=== PATIENT | male | born 1990 | race Caucasian/White ===

== ENCOUNTER 2018-03-05 14:30 | Emergency (ER) | payer SELFPAY ==
--- NOTE | 2018-03-05 14:38 | EDPHY ---
H & P Stated Complaint: SI/QUIT HIS JOB AND LOST GIRLFRIEND RECENTLY Source: Patient, Family (Father) Exam Limitations: No limitations - Personal History Current Tetanus/Diphtheria Vaccine: Yes - Medical/Surgical History Hx Asthma: No Hx Chronic Respiratory Disease: No Hx Diabetes: No Hx Cardiac Disease: No Hx Renal Disease: No Hx Cirrhosis: No Hx Alcoholism: No Hx HIV/AIDS: No Hx Splenectomy or Spleen Trauma: No Other PMH: DENIES - Social History Smoking Status: Current some day smoker Time Seen by Provider: 03/05/18 14:37 HPI/ROS: HPI: This is a 19-year-old male who presents with Chief Complaint: Suicidal ideation Location: psych Quality: Suicidal ideation Duration: 1-2 weeks Signs and Symptoms: No hallucinations, + insomnia, + inability of a motion, + suicidal ideation with a plan, no homicidal ideation, no paranoia Timing: Daily, worsening Severity: Severe Context: Patient presents with complaints of severe major depression over the last 5 months. His father is concerned over the last several weeks as patient has become more and more depressed withdrawing from family and friends. Smokes marijuana frequently. Quit his job and recently lost his girlfriend. No prior history of depression or inpatient psychiatric treatment. Patient has been playing with guns and knives and even told his roommates and family that he should just kill himself with his gun. He does not want to live any longer. Modifying Factors: None Comment: ROS: see HPI Constitutional: No fever, no chills, no weight loss Eyes: No blurred vision Respiratory: No shortness of breath, no cough Cardiovascular: No chest pain Gastrointestinal: No nausea, no vomiting, no diarrhea Genitourinary: No dysuria Extremities: No myalgias Neurologic: No weakness, no numbness Skin: No rashes Hematologic: No bruising, no bleeding MEDICAL/SURGICAL/SOCIAL HISTORY: Medical history: Generally healthy. Does not take any regular medications. Surgical history: Denies Social history: Student. Lives with roommates. Family history noncontributory. CONSTITUTIONAL: Tense, withdrawn, mumbling, tidy, young adult male, awake and alert, no obvious distress HEENT: Atraumatic and normocephalic, PERRL, EOMI. Nares patent; no rhinorrhea; no nasal mucosal edema. Tympanic membranes clear. Oropharynx clear, no exudate and moist pink mucosa. Airway patent. No lymphadenopathy. No meningismus. Cardiovascular: Normal S1/S2, tachycardia, regular rhythm, without murmur rub or gallop. PULMONARY/CHEST: Symmetrical and nontender. Clear to auscultation bilaterally. Good air movement. No accessory muscle usage. ABDOMEN: Soft, nondistended, nontender, no rebound, no guarding, no peritoneal signs, no masses or organomegaly. No CVAT. EXTREMITIES: 2/2 pulses, strength 5/5, no deformities, no clubbing, no cyanosis or edema. NEUROLOGICAL: no focal neuro deficits. GCS 15. SKIN: Warm and dry, no erythema. no rash. Good capillary refill. PSYCH: Poor eye contact, no flight of ideas, organized thought process, poor insight and judgment, no auditory and visual command hallucinations, + suicidal ideation with a plan, no homicidal ideation, not paranoid (Stephy Mack) Constitutional: Initial Vital Signs Temperature (C) 37.1 C 03/05/18 14:33 Heart Rate 103 H 03/05/18 14:33 Respiratory Rate 18 03/05/18 14:33 Blood Pressure 123/81 H 03/05/18 14:33 O2 Sat (%) 94 03/05/18 14:33 O2 Delivery Mode Room Air Allergies/Adverse Reactions: No Known Allergies Allergy (Unverified 03/05/18 14:33) Home Medications: Medication Instructions Recorded NK [No Known Home Meds] 03/05/18 Medical Decision Making ED Course/Re-evaluation: 1450: Placed on M1 hold as patient is gravely disabled, unable to care for himself and is in eminent danger as he has suicidal behavior and thoughts with a plane. Labs and UDS ordered. 1630: Labs and UDS reviewed; positive for marijuana. Medical clearance for mental health evaluation. 1640: End of shift. Signed over to Dr. Lizarraga pending mental health evaluation and final disposition. Patient would benefit from inpatient psychiatric hospitalization and stabilization. This patient was seen under the supervision of my secondary supervising physician. I evaluated care for this patient independently. Discussed this patient with Dr. Lizarraga who did not see the patient. (Stephy Mack) This patient was evaluated by a the psychiatric team. In consultation with psychiatrist this patient is safe to go home with his father. His father works from home. He will be with him the entire time. They have close follow-up as outpatient. He knows that he can come back here at any time if necessary. ( Jaswinder Lizarraga) Differential Diagnosis: Differential diagnosis includes but is not limited to major severe and functional depression, generalized anxiety disorder, suicidal behavior. (Stephy Mack) - Data Points Laboratory Results: Laboratory Results 03/05/18 15:30 03/05/18 15:30 03/05/18 03/05/18 03/05/18 15:30 15:30 14:40 WBC 6.86 10^3/uL 10^3/uL (3.80-9.50) RBC 5.43 10^6/uL 10^6/uL (4.40-6.38) Hgb 17.0 g/dL g/dL (13.7-17.5) Hct 47.6 % % (40.0-51.0) MCV 87.7 fL fL (81.5-99.8) MCH 31.3 pg pg (27.9-34.1) MCHC 35.7 g/dL g/dL (32.4-36.7) RDW 12.0 % % (11.5-15.2) Plt Count 267 10^3/uL 10^3/uL (150-400) MPV 10.4 fL fL (8.7-11.7) Neut % (Auto) 62.9 % % (39.3-74.2) Lymph % (Auto) 29.6 % % (15.0-45.0) [place] % (Auto) 6.1 % % (4.5-13.0) Eos % (Auto) 0.1 % L % (0.6-7.6) Baso % (Auto) 1.0 % % (0.3-1.7) Nucleat RBC Rel Count 0.0 % % (0.0-0.2) Absolute Neuts (auto) 4.31 10^3/uL 10^3/uL (1.70-6.50) Absolute Lymphs (auto) 2.03 10^3/uL 10^3/uL (1.00-3.00) Absolute Monos (auto) 0.42 10^3/uL 10^3/uL (0.30-0.80) Absolute Eos (auto) 0.01 10^3/uL L 10^3/uL (0.03-0.40) Absolute Basos (auto) 0.07 10^3/uL 10^3/uL (0.02-0.10) Absolute Nucleated RBC 0.00 10^3/uL 10^3/uL (0-0.01) Immature Gran % 0.3 % % (0.0-1.1) Immature Gran # 0.02 10^3/uL 10^3/uL (0.00-0.10) Sodium 140 mEq/L mEq/L (135-145) Potassium 4.0 mEq/L mEq/L (3.5-5.2) Chloride 103 mEq/L mEq/L (97-110) Carbon Dioxide 23 mEq/l mEq/l (22-31) Anion Gap 14 mEq/L mEq/L (8-16) BUN 8 mg/dL mg/dL (7-23) Creatinine 1.0 mg/dL mg/dL (0.7-1.3) Estimated GFR > 60 Glucose 96 mg/dL mg/dL (70-100) Calcium 9.3 mg/dL mg/dL (8.5-10.4) Urine Opiates Screen NEGATIVE (NEGATIVE) Urine Barbiturates NEGATIVE (NEGATIVE) Ur Phencyclidine Scrn NEGATIVE (NEGATIVE) Ur Amphetamine Screen NEGATIVE (NEGATIVE) U Benzodiazepines Scrn NEGATIVE (NEGATIVE) Urine Cocaine Screen NEGATIVE (NEGATIVE) U Marijuana (THC) Screen NON-NEGATIVE H (NEGATIVE) Medications Given: Discontinued Medications Nicotine (Nicoderm Cq) 21 mg TD EDNOW ONE Stop: 03/05/18 18:46 Last Admin: 03/05/18 18:49 Dose: 21 mg Departure - Departure Disposition: Home, Routine, Self-Care Clinical Impression: Severe major depression, Substance abuse Suicidal behavior Qualifiers: Attempted self-injury: without attempted self-injury Qualified Code(s): R46.89 - Other symptoms and signs involving appearance and behavior Condition: Good Instructions: Depression (ED), Suicide Prevention for Adults (ED), Polysubstance Abuse (ED)
[2018-03-05 15:41] LABS: PLATELET COUNT 267 10^3/uL (150-400)
[2018-03-05] MEDS ORDERED: NICOTINE 21 MG/24 HR PATCH TD ONE ×2 (18:40→18:45)
[2018-03-05 21:20] VITALS: BP 132/88
== END 2018-03-05 21:19 | disposition home or self-care (01) ==
DX: F32.2 Major depressive disorder, single episode, severe without psychotic features (principal); F19.10 Other psychoactive substance abuse, uncomplicated; F17.200 Nicotine dependence, unspecified, uncomplicated
CPT/HCPCS: 80305